=== PATIENT | female | born 1935 | race Caucasian/White ===

== ENCOUNTER 2017-04-15 11:26 | Emergency (ER) | payer OTHER | END 2017-04-15 15:13 | disposition home or self-care (01) | LOC: E/R 15:13 | DX: K64.9 Unspecified hemorrhoids (principal); I10 Essential (primary) hypertension; R40.2142 Coma scale, eyes open, spontaneous, at arrival to emergency department; R40.2252 Coma scale, best verbal response, oriented, at arrival to emergency department; R40.2362 Coma scale, best motor response, obeys commands, at arrival to emergency department; Z79.82 Long term (current) use of aspirin | CPT/HCPCS: 99283 ==